=== PATIENT | male | born 1935 | race Caucasian/White ===

== ENCOUNTER 2017-04-30 12:49 | Inpatient (IN) | payer MEDICARE ==
[~2017-04-30] VITALS: Ht 175.3 cm; Wt 93.5 kg
[2017-04-30] MEDS ORDERED: LABETALOL 5MG/ML, 20ML IVPush STA (13:16)
[2017-04-30] MEDS ORDERED: AMLO5TAB4 PO (13:22)
[2017-04-30] MEDS ORDERED: METF10002 PO (13:22)
[2017-04-30] MEDS ORDERED: ATOR10TA9 PO (13:22)
[2017-04-30] MEDS ORDERED: GLIP10TA13 PO (13:22)
[2017-04-30] MEDS ORDERED: PLEASE ENTER HEIGHT AND WEIGHT MC SCH (13:30)
[2017-04-30] MEDS ORDERED: PLEASE ENTER ALLERGIES MC SCH ×2 (13:30)
[2017-04-30] MEDS ORDERED: SODIUM CHLORIDE FLUSH 10ML SYR IVF ONE (13:30)
[2017-04-30] MEDS ORDERED: LABETALOL 5MG/ML, 20ML ONE (13:45)
[2017-04-30 14:24] LABS: ASPARTATE AMINO TRANSFERASE 14 U/L (15-37); BLOOD UREA NITROGEN 24 mg/dL (7-18)
[2017-04-30 14:30] LABS: IS PT STATUS REG ER OR PRE ER? YES
[2017-04-30] MEDS ORDERED: OMNIPAQUE 350 MG/ML, 100ML BOTTLE ONE (15:20)
[2017-04-30] MEDS ORDERED: HEPARIN 25,000 UNITS/500ML PMX 500 ML IV PRN ×2 (16:30→21:07)
[2017-04-30] MEDS ORDERED: HEPARIN 5,000 UNITS/ML, 1ML IV ONE ×2 (16:30→21:30)
[2017-04-30] MEDS ORDERED: HEPARIN 5,000 UNITS/ML, 1ML ONE (16:42)
[2017-04-30] MEDS ORDERED: HEPARIN 25,000 UNITS/500ML PMX 500 ML ONE (16:43)
[2017-04-30] MEDS ORDERED: morphine SULFATE 10 MG/ML, 1ML IVPush PRN (17:00)
[2017-04-30] MEDS ORDERED: BISACODYL 10 MG SUPP PR PRN (17:00)
[2017-04-30] MEDS ORDERED: DOCUSATE 100 MG CAPSULE PO PRN (17:00)
[2017-04-30] MEDS ORDERED: LABETALOL 5MG/ML 40ML VIAL IVPush PRN (17:00)
[2017-04-30] MEDS ORDERED: POLYETHYLENE GLYCOL 17 GM PACKET PO PRN (17:00)
[2017-04-30] MEDS ORDERED: ONDANSETRON 2MG/ML, 2ML IVPush PRN (17:00)
[2017-04-30] MEDS ORDERED: BUPIVACAINE/PF 0.5% ONE (17:54)
[2017-04-30] MEDS ORDERED: HEPARIN 1,000 UNITS/ML, 10ML ONE (17:54)
[2017-04-30] MEDS ORDERED: PROTAMINE SULFATE 10 MG/ML, 5ML ONE (17:54)
[2017-04-30] MEDS ORDERED: PAPAVERINE 30 MG/ML, 2ML ONE (17:54)
[2017-04-30] MEDS ORDERED: THROMBIN 5,000 UNIT VIAL TP ONE ×2 (17:55→19:00)
[2017-04-30] MEDS ORDERED: FENTANYL PF 250 MCG/5ML ONE (17:55)
[2017-04-30] MEDS ORDERED: HEPARIN 1,000 UNITS/ML, 10ML IV ONE (18:15)
[2017-04-30] MEDS ORDERED: ETOMIDATE 40 MG/20 ML ONE (18:30)
[2017-04-30] MEDS ORDERED: EPHEDRINE 50 MG/ML, 1ML ONE (18:30)
[2017-04-30] MEDS ORDERED: CEFAZOLIN 1,000 MG ONE (18:30)
[2017-04-30] MEDS ORDERED: PROPOFOL 10 MG/ML, 20ML ONE (18:30)
[2017-04-30] MEDS ORDERED: BUPIVACAINE/PF-EPI 0.5% 1:200K INFIL ONE (18:51)
[2017-04-30] MEDS ORDERED: HALOPERIDOL 5 MG/ML IV ONE (19:00)
[2017-04-30] MEDS ORDERED: ALBUTEROL SULFATE 2.5 MG/3 ML NPPB PRN (19:00)
[2017-04-30] MEDS ORDERED: FENTANYL PF 100 MCG/2ML IV PRN (19:00)
[2017-04-30] MEDS ORDERED: hydrALAzine 20 MG/ML, 1ML IV PRN (19:00)
[2017-04-30] MEDS ORDERED: HYDROmorphone 1 MG/ML, 1ML IV PRN (19:00)
[2017-04-30] MEDS ORDERED: OXYcodone 5 MG/5 ML ORAL.SOL UDC PO PRN (19:00)
[2017-04-30] MEDS ORDERED: ACETAMINOPHEN 325 MG TABLET PO PRN (19:00)
[2017-04-30] MEDS ORDERED: METOPROLOL 1 MG/ML, 5ML IV PRN (19:00)
[2017-04-30] MEDS ORDERED: hydrALAzine 20 MG/ML, 1ML ONE (19:39)
[2017-04-30] MEDS ORDERED: OXYcodone 5 MG/5 ML ORAL.SOL UDC ONE (20:10)
[2017-04-30] MEDS ORDERED: METOPROLOL 1 MG/ML, 5ML ONE (20:10)
[2017-04-30] MEDS: SODIUM CHLORIDE FLUSH 3ML SYRINGE IVF SCH (21:00)
[2017-04-30] MEDS ORDERED: HEPARIN 5,000 UNITS/ML, 1ML IV PRN ×2 (21:30)
[2017-04-30 22:05] VITALS: BP 154/71
[2017-04-30] MEDS: ATORVASTATIN 10 MG TABLET PO SCH (22:34)
[2017-04-30] MEDS: INSULIN ASPART 100 UNITS/ML, PEN SQ-INSULIN SCH (22:39)
[2017-04-30] MEDS ORDERED: MAGNESIUM SULFATE PMX 4GM/100M 100 ML IV ONE (23:30)
[2017-04-30 23:57] VITALS: BP 159/69
[2017-05-01 02:05] VITALS: BP 155/65
[2017-05-01 06:24] LABS: BLOOD UREA NITROGEN 20 mg/dL (7-18)
[2017-05-01] MEDS: SODIUM CHLORIDE FLUSH 3ML SYRINGE IVF SCH ×2 (08:21→20:41)
[2017-05-01] MEDS: AMLODIPINE 5 MG TABLET PO SCH (08:35)
[2017-05-01] MEDS: HYDROcodone/APAP 5/325 TABLET PO PRN (08:35)
[2017-05-01] MEDS: INSULIN ASPART 100 UNITS/ML, PEN SQ-INSULIN SCH ×4 (08:35→20:41)
[2017-05-01 08:44] VITALS: BP 156/60
[2017-05-01] MEDS: HEPARIN 5,000 UNITS/ML, 1ML IV PRN ×2 (10:59→17:52)
[2017-05-01] MEDS: CEFTRIAXONE PMX 1GM/50ML 50 ML IV SCH (12:29)
[2017-05-01 14:16] VITALS: BP 133/60
[2017-05-01] MEDS: ACETAMINOPHEN 325 MG TABLET PO PRN (17:52)
[2017-05-01 19:25] VITALS: BP 137/61
[2017-05-01] MEDS: HEPARIN 25,000 UNITS/500ML PMX 500 ML IV PRN (19:50)
[2017-05-01] MEDS: ATORVASTATIN 10 MG TABLET PO SCH (20:41)
[2017-05-01 20:43] LABS: PATH.CAST-FLAG NOT PRESENT; SPERM-FLAG NOT PRESENT; SRC-FLAG NOT PRESENT; XTAL-FLAG NOT PRESENT; YLC-FLAG NOT PRESENT
[2017-05-01] MEDS ORDERED: LOPE2CAP PO (22:07)
[2017-05-01] MEDS ORDERED: GABA300C10 PO (22:07)
[2017-05-01] MEDS ORDERED: LOPERAMIDE 2 MG CAPSULE PO PRN (22:30)
[2017-05-02] MEDS: HEPARIN 5,000 UNITS/ML, 1ML IV PRN ×2 (01:01→07:53)
[2017-05-02 01:07] VITALS: BP 146/61
[2017-05-02 06:02] LABS: BLOOD UREA NITROGEN 22 mg/dL (7-18)
[2017-05-02] MEDS: INSULIN ASPART 100 UNITS/ML, PEN SQ-INSULIN SCH ×4 (08:01→20:47)
[2017-05-02] MEDS: AMLODIPINE 5 MG TABLET PO SCH (08:03)
[2017-05-02] MEDS: GABAPENTIN 300 MG CAPSULE PO SCH ×3 (08:03→20:47)
[2017-05-02 08:06] VITALS: BP 148/64
[2017-05-02] MEDS: SODIUM CHLORIDE 0.9% 1,000 ML IV SCH ×2 (09:27→20:49)
[2017-05-02] MEDS: HEPARIN 25,000 UNITS/500ML PMX 500 ML IV PRN (11:22)
[2017-05-02] MEDS: SODIUM CHLORIDE FLUSH 10ML SYR IVF SCH ×2 (11:33→20:48)
[2017-05-02] MEDS: CEFTRIAXONE PMX 1GM/50ML 50 ML IV SCH (11:33)
[2017-05-02] MEDS: INSULIN DETEMIR 100 UNITS/ML, PEN SQ-INSULIN SCH ×2 (11:53→23:29)
[2017-05-02] MEDS: HYDROcodone/APAP 5/325 TABLET PO PRN (13:14)
[2017-05-02] MEDS: ENOXAPARIN 100 MG/ML SQ SCH (13:15)
[2017-05-02 14:57] VITALS: BP 144/61
[2017-05-02 20:30] VITALS: BP 157/65
[2017-05-02] MEDS: ATORVASTATIN 10 MG TABLET PO SCH (20:47)
[2017-05-03] MEDS: ENOXAPARIN 100 MG/ML SQ SCH ×2 (00:45→11:28)
[2017-05-03 03:00] VITALS: BP 154/66
[2017-05-03 04:00] VITALS: BP 143/61
[2017-05-03 06:57] VITALS: BP 142/59
[2017-05-03] MEDS: INSULIN ASPART 100 UNITS/ML, PEN SQ-INSULIN SCH ×4 (07:00→21:19)
[2017-05-03] MEDS: GABAPENTIN 300 MG CAPSULE PO SCH ×3 (09:37→21:19)
[2017-05-03] MEDS: SODIUM CHLORIDE FLUSH 10ML SYR IVF SCH ×2 (09:37→21:19)
[2017-05-03] MEDS: ACETAMINOPHEN 325 MG TABLET PO PRN (09:37)
[2017-05-03] MEDS: AMLODIPINE 5 MG TABLET PO SCH (09:37)
[2017-05-03] MEDS: INSULIN DETEMIR 100 UNITS/ML, PEN SQ-INSULIN SCH (11:34)
[2017-05-03 12:24] LABS: BLOOD UREA NITROGEN 27 mg/dL (7-18)
[2017-05-03] MEDS: CEFTAROLINE 400 MG in SODIUM CHLORIDE 0.9% 100 ML IV SCH (16:16)
[2017-05-03 18:00] VITALS: BP 170/83
[2017-05-03 18:49] VITALS: BP 157/54
[2017-05-03] MEDS: ATORVASTATIN 10 MG TABLET PO SCH (21:19)
[2017-05-04] MEDS: INSULIN DETEMIR 100 UNITS/ML, PEN SQ-INSULIN SCH ×2 (00:22→11:46)
[2017-05-04] MEDS: ENOXAPARIN 100 MG/ML SQ SCH ×2 (00:22→14:22)
[2017-05-04 00:42] VITALS: BP 147/62
[2017-05-04] MEDS: CEFTAROLINE 400 MG in SODIUM CHLORIDE 0.9% 100 ML IV SCH (02:00)
[2017-05-04 06:56] LABS: BLOOD UREA NITROGEN 27 mg/dL (7-18)
[2017-05-04 07:39] VITALS: BP 152/62
[2017-05-04] MEDS: INSULIN ASPART 100 UNITS/ML, PEN SQ-INSULIN SCH ×3 (07:58→16:36)
[2017-05-04] MEDS: AMLODIPINE 5 MG TABLET PO SCH (09:00)
[2017-05-04] MEDS: SODIUM CHLORIDE FLUSH 10ML SYR IVF SCH (09:00)
[2017-05-04] MEDS: GABAPENTIN 300 MG CAPSULE PO SCH ×2 (09:00→16:36)
[2017-05-04] MEDS ORDERED: POLY17PO5 PO (10:25)
[2017-05-04] MEDS ORDERED: CEPH-376 PO (10:25)
[2017-05-04] MEDS ORDERED: ENOX100S4 SQ (10:25)
[2017-05-04] MEDS ORDERED: INSU100I18 SQ-INSULIN (10:25)
[2017-05-04] MEDS ORDERED: CEPHALEXIN 500 MG CAPSULE PO SCH (12:30)
[2017-05-04 15:59] VITALS: BP 158/67
[2017-05-04 17:36] VITALS: BP 159/59
[2017-05-06 17:07] LABS: APTT 38.8 sec (.); APTT 1:1 SALINE 49.4 Sec (.); PROTHROMBIN TIME 11.8 sec (.)
== END 2017-05-04 18:00 | DRG 253 ==
LOC: ED 17:26 → EDIP 17:29 → 5SO 21:03 → 4NOR 05-03 18:05
PROVIDERS: ADMIT Internal Medicine; ATTEND Internal Medicine
PROC: 03CC0ZZ Extirpation of Matter from Left Radial Artery, Open Approach (ICD-10-PCS; 2017-04-30)
PROC: 03CA0ZZ Extirpation of Matter from Left Ulnar Artery, Open Approach (ICD-10-PCS; 2017-04-30)
PROC: 03C80ZZ Extirpation of Matter from Left Brachial Artery, Open Approach (ICD-10-PCS; principal; 2017-04-30 17:30)
PROC: 0T9B70Z Drainage of Bladder with Drainage Device, Via Natural or Artificial Opening (ICD-10-PCS; 2017-05-01)
DX: I74.2 Embolism and thrombosis of arteries of the upper extremities (principal); L03.90 Cellulitis, unspecified; I11.9 Hypertensive heart disease without heart failure; E11.65 Type 2 diabetes mellitus with hyperglycemia; I48.91 Unspecified atrial fibrillation; E78.5 Hyperlipidemia, unspecified; D72.829 Elevated white blood cell count, unspecified; E11.51 Type 2 diabetes mellitus with diabetic peripheral angiopathy without gangrene; Z79.84 Long term (current) use of oral hypoglycemic drugs; Z79.899 Other long term (current) drug therapy; Z87.891 Personal history of nicotine dependence; Z90.49 Acquired absence of other specified parts of digestive tract; Z83.3 Family history of diabetes mellitus; Z79.01 Long term (current) use of anticoagulants; Z91.81 History of falling; R53.81 Other malaise
CPT/HCPCS: 36415; 70450; 71010; 71275; 74175; 80048; 80053; 81001; 81241; 82962; 83036; 83605; 83735; 83880; 84439; 84443; 84484; 85025; 85303; 85306; 85520; 85598; 85610; 85613; 85670; 85730; 85732; 86146; 86147; 87040; 88304; 93005; 93306; 93931; 96374; J0690; J0696; J0712; J1644; J1650; J1815; J2704; J2720; J3010; J3490; Q9967; C1757; J0360; J2440; J3475; J7030

== ENCOUNTER 2018-04-26 09:28 | Inpatient (IN) | payer MEDICARE, OTHER ==
[~2018-04-26] VITALS: Ht 175.3 cm; Wt 94.0 kg
[~2018-04-26 09:28] MED LIST: AMLO5TAB4 PO; ATOR10TA9 PO; CEPH-376 PO; ENOX100S4 SQ; GABA300C10 PO; GLIP10TA13 PO; INSU100I18 SQ-INSULIN; LOPE2CAP PO; METF10002 PO; POLY17PO5 PO
[2018-04-26] MEDS ORDERED: SODIUM CHLORIDE 0.9% 1,000ML IVBOLUS ONE (10:00)
[2018-04-26] MEDS ORDERED: SODIUM CHLORIDE FLUSH 10ML SYR IVF ONE (10:00)
[2018-04-26 10:22] LABS: BASOPHILS % (AUTO) 1 % (0-1); EOSINOPHILS # (AUTO) 0.26 x10^3/uL (0-0.4); EOSINOPHILS % (AUTO) 2 % (1-7); LYMPHOCYTES # (AUTO) 2.11 x10^3/uL (1-3.4); LYMPHOCYTES % (AUTO) 16 % (22-44); MD NO; MEAN CORPUSCULAR HEMOGLOBIN 27.9 pg (27.5-34.5); MEAN CORPUSCULAR HGB CONC 32.5 g/dL (33.2-36.2); MEAN CORPUSCULAR VOLUME 85.8 fL (81-97); MEAN PLATELET VOLUME 8.1 fL (7.4-10.4); MONOCYTES # (AUTO) 0.82 x10^3/uL (0.2-0.8); MONOCYTES % (AUTO) 6 % (2-9); NEUTROPHILS # (AUTO) 9.74 x10^3/uL (1.8-6.8); NEUTROPHILS % (AUTO) 75 % (42-75); PLATELET COUNT 414 x10^3/uL (130-400); RED BLOOD COUNT 3.44 x10^6/uL (4.38-5.82); RED CELL DISTRIBUTION WIDTH 16.6 % (9.4-14.8)
[2018-04-26 10:29] LABS: ALBUMIN 2.7 g/dL (3.4-5.0); ANION GAP 7 mmol/L (5-15); CALCIUM 8.4 mg/dL (8.5-10.1); CHLORIDE 112 mmol/L (98-107); CREATININE 1.23 mg/dL (0.7-1.3)
[2018-04-26] MEDS ORDERED: CEFTRIAXONE PMX 1GM/50ML 50 ML ONE (10:51)
[2018-04-26 10:57] LABS: MICROSCOPIC INDICATED
[2018-04-26] MEDS ORDERED: CEFTRIAXONE PMX 1GM/50ML 50 ML IV ONE (11:00)
[2018-04-26 11:10] LABS: CULTURE INDICATED? NO
[2018-04-26 11:39] LABS: CLOSTRIDIUM DIFFICILE ANTIGEN NEGATIVE; CLOSTRIDIUM DIFFICILE TOXIN NEGATIVE (Negative)
[2018-04-26] MEDS ORDERED: METRONIDAZOLE PMX 500MG/100ML 100 ML IV ONE (12:00)
[2018-04-26] MEDS ORDERED: LISINOPRIL PO (12:13)
[2018-04-26] MEDS ORDERED: CARVEDILOL PO (12:13)
[2018-04-26] MEDS ORDERED: ASPI-515 PO (12:13)
[2018-04-26] MEDS ORDERED: METFORMIN PO (12:13)
[2018-04-26] MEDS ORDERED: FINESTERIDE PO (12:13)
[2018-04-26] MEDS ORDERED: TAMULOSIN PO (12:13)
[2018-04-26] MEDS ORDERED: OMEP-110 PO (12:13)
[2018-04-26] MEDS ORDERED: BESYLATE PO (12:13)
[2018-04-26] MEDS ORDERED: SODIUM CHLORIDE 0.9% 1,000 ML IV SCH (12:22)
[2018-04-26] MEDS ORDERED: ONDANSETRON 2MG/ML, 2ML IVPush PRN (12:30)
[2018-04-26 13:12] LABS: HEMOGLOBIN A1C 7.9 % (4.2-6.3)
[2018-04-26] MEDS ORDERED: VANCOMYCIN 50 MG/ML ORAL SUSP PO SCH (13:30)
[2018-04-26 16:00] VITALS: BP 132/75
[2018-04-26] MEDS: LACTOBACILLUS CHEW TABLET PO SCH ×2 (17:27→20:38)
[2018-04-26] MEDS: GABAPENTIN 300 MG CAPSULE PO SCH ×2 (17:27→20:39)
[2018-04-26] MEDS: HEPARIN 5,000 UNITS/ML, 1ML SQ SCH (17:28)
[2018-04-26] MEDS ORDERED: CARVEDILOL 6.25 MG TABLET PO SCH (18:00)
[2018-04-26] MEDS: ATORVASTATIN 10 MG TABLET PO SCH (20:39)
[2018-04-26 21:30] VITALS: BP 173/85
[2018-04-26] MEDS ORDERED: CARVEDILOL 6.25 MG TABLET ONE (23:17)
[2018-04-26] MEDS: INSULIN REGULAR 100 UNITS/ML, 3ML VIAL SQ-INSULIN SCH (23:22)
[2018-04-26] MEDS ORDERED: CARVEDILOL 6.25 MG TABLET PO ONE (23:30)
[2018-04-27 00:45] VITALS: BP 159/66
[2018-04-27] MEDS ORDERED: ACETAMINOPHEN 500 MG TABLET ONE (01:14)
[2018-04-27] MEDS ORDERED: VANCOMYCIN PER PHARMACY MC PRN (01:30)
[2018-04-27] MEDS ORDERED: PHARMACOKINETIC MONITORING MC PRN (01:30)
[2018-04-27] MEDS ORDERED: ACETAMINOPHEN 500 MG TABLET PO PRN (01:30)
[2018-04-27] MEDS: PIPERACILLIN/TAZO/PMX 4.5GM 100 ML IV SCH ×3 (01:36→16:56)
[2018-04-27] MEDS ORDERED: VANCOMYCIN 1,800 MG in SODIUM CHLORIDE 0.9% 250 ML IV ONE (02:00)
[2018-04-27] MEDS: HEPARIN 5,000 UNITS/ML, 1ML SQ SCH ×3 (03:39→22:16)
[2018-04-27 05:33] LABS: BASOPHILS # (AUTO) 0.06 x10^3/uL (0-0.1); BASOPHILS % (AUTO) 1 % (0-1); EOSINOPHILS # (AUTO) 0.31 x10^3/uL (0-0.4); EOSINOPHILS % (AUTO) 2 % (1-7); LYMPHOCYTES # (AUTO) 2.26 x10^3/uL (1-3.4); LYMPHOCYTES % (AUTO) 17 % (22-44); MD NO; MEAN CORPUSCULAR HEMOGLOBIN 27.9 pg (27.5-34.5); MEAN CORPUSCULAR HGB CONC 32.4 g/dL (33.2-36.2); MEAN CORPUSCULAR VOLUME 86.1 fL (81-97); MEAN PLATELET VOLUME 8.3 fL (7.4-10.4); MONOCYTES # (AUTO) 1.01 x10^3/uL (0.2-0.8); MONOCYTES % (AUTO) 8 % (2-9); NEUTROPHILS # (AUTO) 9.82 x10^3/uL (1.8-6.8); NEUTROPHILS % (AUTO) 73 % (42-75); PLATELET COUNT 411 x10^3/uL (130-400); RED CELL DISTRIBUTION WIDTH 16.8 % (9.4-14.8)
[2018-04-27 05:49] LABS: CHLORIDE 111 mmol/L (98-107)
[2018-04-27] MEDS: CARVEDILOL 6.25 MG TABLET PO SCH ×2 (05:54→16:56)
[2018-04-27 06:04] LABS: ANION GAP 7 mmol/L (5-15); CALCIUM 7.8 mg/dL (8.5-10.1); CREATININE 1.16 mg/dL (0.7-1.3)
[2018-04-27 08:00] VITALS: BP 115/58
[2018-04-27] MEDS: LACTOBACILLUS CHEW TABLET PO SCH ×3 (08:19→22:16)
[2018-04-27] MEDS: ASPIRIN 81 MG TABLET EC PO SCH (08:19)
[2018-04-27] MEDS: GABAPENTIN 300 MG CAPSULE PO SCH ×3 (08:19→22:16)
[2018-04-27] MEDS: INSULIN REGULAR 100 UNITS/ML, 3ML VIAL SQ-INSULIN SCH ×4 (08:19→21:00)
[2018-04-27 08:25] LABS: BASOPHILS # (AUTO) 0.11 x10^3/uL (0-0.1); BASOPHILS % (AUTO) 1 % (0-1); EOSINOPHILS % (AUTO) 2 % (1-7); LYMPHOCYTES # (AUTO) 2.59 x10^3/uL (1-3.4); LYMPHOCYTES % (AUTO) 21 % (22-44); MD NO; MEAN CORPUSCULAR HGB CONC 32.8 g/dL (33.2-36.2); MEAN CORPUSCULAR VOLUME 85.5 fL (81-97); MEAN PLATELET VOLUME 7.9 fL (7.4-10.4); MONOCYTES # (AUTO) 0.81 x10^3/uL (0.2-0.8); MONOCYTES % (AUTO) 7 % (2-9); NEUTROPHILS # (AUTO) 8.54 x10^3/uL (1.8-6.8); NEUTROPHILS % (AUTO) 69 % (42-75); PLATELET COUNT 401 x10^3/uL (130-400); RED BLOOD COUNT 3.09 x10^6/uL (4.38-5.82); RED CELL DISTRIBUTION WIDTH 16.4 % (9.4-14.8)
[2018-04-27] MEDS ORDERED: OMEPRAZOLE 20 MG CAPSULE.DR PO SCH (09:00)
[2018-04-27] MEDS ORDERED: FUROSEMIDE 20 MG TABLET PO SCH (09:00)
[2018-04-27 14:29] VITALS: BP 127/61
[2018-04-27 21:01] VITALS: BP 146/63
[2018-04-27] MEDS: ATORVASTATIN 10 MG TABLET PO SCH (22:16)
[2018-04-28 01:58] VITALS: BP 144/61
[2018-04-28] MEDS: PIPERACILLIN/TAZO/PMX 4.5GM 100 ML IV SCH ×3 (02:12→17:05)
[2018-04-28] MEDS: VANCOMYCIN 1,600 MG in SODIUM CHLORIDE 0.9% 250 ML IV SCH (02:49)
[2018-04-28] MEDS: HEPARIN 5,000 UNITS/ML, 1ML SQ SCH ×3 (04:17→20:09)
[2018-04-28] MEDS: CARVEDILOL 6.25 MG TABLET PO SCH ×2 (06:06→17:07)
[2018-04-28 06:40] VITALS: BP 143/61
[2018-04-28] MEDS: INSULIN REGULAR 100 UNITS/ML, 3ML VIAL SQ-INSULIN SCH ×4 (07:00→20:44)
[2018-04-28] MEDS ORDERED: SENNA/DOCUSATE TABLET PO PRN (07:30)
[2018-04-28 08:03] LABS: BASOPHILS # (AUTO) 0.08 x10^3/uL (0-0.1); BASOPHILS % (AUTO) 1 % (0-1); EOSINOPHILS # (AUTO) 0.56 x10^3/uL (0-0.4); EOSINOPHILS % (AUTO) 5 % (1-7); LYMPHOCYTES # (AUTO) 2.44 x10^3/uL (1-3.4); LYMPHOCYTES % (AUTO) 20 % (22-44); MD NO; MEAN CORPUSCULAR HEMOGLOBIN 27.9 pg (27.5-34.5); MEAN CORPUSCULAR HGB CONC 32.5 g/dL (33.2-36.2); MEAN PLATELET VOLUME 8.1 fL (7.4-10.4); MONOCYTES # (AUTO) 0.85 x10^3/uL (0.2-0.8); MONOCYTES % (AUTO) 7 % (2-9); NEUTROPHILS # (AUTO) 8.42 x10^3/uL (1.8-6.8); NEUTROPHILS % (AUTO) 68 % (42-75); PLATELET COUNT 478 x10^3/uL (130-400); RED BLOOD COUNT 3.34 x10^6/uL (4.38-5.82); RED CELL DISTRIBUTION WIDTH 16.8 % (9.4-14.8)
[2018-04-28] MEDS: LACTOBACILLUS CHEW TABLET PO SCH ×3 (09:49→20:09)
[2018-04-28] MEDS: GABAPENTIN 300 MG CAPSULE PO SCH ×3 (09:49→20:09)
[2018-04-28] MEDS: ASPIRIN 81 MG TABLET EC PO SCH (09:49)
[2018-04-28 14:02] VITALS: BP 152/62
[2018-04-28 18:29] VITALS: BP 135/49
[2018-04-28] MEDS: ATORVASTATIN 10 MG TABLET PO SCH (20:09)
[2018-04-29] MEDS: PIPERACILLIN/TAZO/PMX 4.5GM 100 ML IV SCH ×2 (02:02→08:41)
[2018-04-29 02:06] VITALS: BP 156/68
[2018-04-29] MEDS: VANCOMYCIN 1,600 MG in SODIUM CHLORIDE 0.9% 250 ML IV SCH (02:58)
[2018-04-29] MEDS: HEPARIN 5,000 UNITS/ML, 1ML SQ SCH ×2 (03:48→11:28)
[2018-04-29] MEDS: CARVEDILOL 6.25 MG TABLET PO SCH (05:06)
[2018-04-29 05:50] LABS: BASOPHILS # (AUTO) 0.05 x10^3/uL (0-0.1); BASOPHILS % (AUTO) 0 % (0-1); EOSINOPHILS # (AUTO) 0.53 x10^3/uL (0-0.4); EOSINOPHILS % (AUTO) 5 % (1-7); LYMPHOCYTES # (AUTO) 2.56 x10^3/uL (1-3.4); LYMPHOCYTES % (AUTO) 22 % (22-44); MD NO; MEAN CORPUSCULAR HEMOGLOBIN 28.4 pg (27.5-34.5); MEAN CORPUSCULAR HGB CONC 32.9 g/dL (33.2-36.2); MEAN CORPUSCULAR VOLUME 86.5 fL (81-97); MEAN PLATELET VOLUME 7.8 fL (7.4-10.4); MONOCYTES # (AUTO) 1.03 x10^3/uL (0.2-0.8); MONOCYTES % (AUTO) 9 % (2-9); NEUTROPHILS # (AUTO) 7.51 x10^3/uL (1.8-6.8); NEUTROPHILS % (AUTO) 64 % (42-75); PLATELET COUNT 495 x10^3/uL (130-400); RED BLOOD COUNT 3.34 x10^6/uL (4.38-5.82); RED CELL DISTRIBUTION WIDTH 16.8 % (9.4-14.8)
[2018-04-29 07:17] VITALS: BP 154/70
[2018-04-29] MEDS: INSULIN REGULAR 100 UNITS/ML, 3ML VIAL SQ-INSULIN SCH ×2 (07:37→11:27)
[2018-04-29] MEDS: GABAPENTIN 300 MG CAPSULE PO SCH (08:41)
[2018-04-29] MEDS: LACTOBACILLUS CHEW TABLET PO SCH (08:41)
[2018-04-29] MEDS: ASPIRIN 81 MG TABLET EC PO SCH (08:41)
[2018-04-29] MEDS ORDERED: FUROSEMIDE 20 MG TABLET PO SCH (09:00)
[2018-04-29] MEDS ORDERED: ISOSORBIDE DINITRATE 10 MG TABLET PO SCH (09:00)
[2018-04-29] MEDS ORDERED: CARV6.2512 PO (11:18)
[2018-04-29] MEDS ORDERED: HYDR-3341 PO (11:18)
[2018-04-29] MEDS ORDERED: ACID1TAB7 PO (11:18)
[2018-04-29] MEDS ORDERED: FURO20TA3 PO (11:18)
[2018-04-29] MEDS ORDERED: DOXY100T10 PO (11:18)
[2018-04-29] MEDS ORDERED: AMOX1TAB64 PO (11:18)
[2018-04-29] MEDS ORDERED: ISOS10TA2 PO (11:18)
== END 2018-04-29 14:00 | disposition home or self-care (01) | DRG 871 ==
LOC: ED 11:32 → EDIP 11:33 → ED 11:46 → 3NE 12:59
PROVIDERS: ADMIT Internal Medicine; ATTEND Internal Medicine
DX: A41.9 Sepsis, unspecified organism (principal); E43 Unspecified severe protein-calorie malnutrition; R19.7 Diarrhea, unspecified; E87.70 Fluid overload, unspecified; E11.21 Type 2 diabetes mellitus with diabetic nephropathy; Z79.84 Long term (current) use of oral hypoglycemic drugs; I10 Essential (primary) hypertension; E11.51 Type 2 diabetes mellitus with diabetic peripheral angiopathy without gangrene; E78.5 Hyperlipidemia, unspecified; I27.20 Pulmonary hypertension, unspecified; E86.0 Dehydration; I48.91 Unspecified atrial fibrillation; N28.9 Disorder of kidney and ureter, unspecified; Z79.82 Long term (current) use of aspirin; Z83.3 Family history of diabetes mellitus; Z87.440 Personal history of urinary (tract) infections
CPT/HCPCS: 36415; 71045; 80048; 81001; 82040; 82330; 82962; 83036; 83605; 83880; 84145; 85025; 87040; 87046; 87324; 87427; 93005; 93306; 93970; 96365; 99285; J0696; J1644; J1815; J2543; J3370; J7030; J7050